=== PATIENT | male | born 1995 | race Caucasian/White ===

== ENCOUNTER 2024-04-08 02:34 | Emergency (ER) | payer BC ==
[~2024-04-08] VITALS: Ht 172.7 cm; Wt 77.3 kg
[2024-04-08 02:42] VITALS: BP 109/56; PULSE 99; RESP 16; TEMP 100.3; O2SAT 99
[2024-04-08 03:32] LABS: COVID AG,FIA SOURCE NASAL SWAB
[2024-04-08 03:39] LABS: SARS-COV2 (COVID) ANTIGEN,FIA Negative (Negative)
[2024-04-08 03:40] LABS: INFLUENZA TYPE B NEGATIVE FOR TYPE B (NEGATIVE)
[2024-04-08 03:43] LABS: INFLUENZA TYPE A POSITIVE FOR TYPE A (NEGATIVE)
== END 2024-04-08 05:35 | disposition home or self-care (01) ==
LOC: EMS 02:34
DX: J11.1 Influenza due to unidentified influenza virus with other respiratory manifestations (principal); Z20.822 Contact with and (suspected) exposure to COVID-19
CPT/HCPCS: 87804; 99283